=== PATIENT | female | born 1960 | race Caucasian/White ===

== ENCOUNTER 2020-12-22 14:40 | Emergency (ER) | payer BC ==
[~2020-12-22] VITALS: Ht 160 cm; Wt 54.3 kg
[~2020-12-22 14:40] MED LIST: CYCLOBENZAPRINE10 MG PO; NAPROSYN500 MG PO
--- NOTE | 2020-12-24 13:12 | EKG ---
[facility] [address] [place], [place] [address] Signed Normal sinus rhythm with sinus arrhythmia Possible Left atrial enlargement Cannot rule out Anterior infarct , age undetermined Abnormal ECG No previous ECGs available Confirmed by QUAN PRICE DO ([id number]) on 12/24/2020 1:12:20 PM Electronically Signed By: QUAN PRICE DO 12/24/20 1312 PATIENT NAME: ISAIAS SOTO Electrocardiogram DATE OF : 60 PHYSICIAN: QUAN PRICE DO REPORT #: [id number] REPORT IS CONFIDENTIAL AND NOT TO BE RELEASED WITHOUT AUTHORIZATION
== END 2020-12-22 19:04 | disposition home or self-care (01) ==
LOC: ED 14:40
DX: R55 Syncope and collapse (principal); F10.10 Alcohol abuse, uncomplicated; F17.200 Nicotine dependence, unspecified, uncomplicated; Z88.2 Allergy status to sulfonamides
CPT/HCPCS: 70450; 71045; 80053; 83735; 84484; 85025; 93005; 93010; 96374; 99285-25; J2060; J7030

== ENCOUNTER 2023-10-30 14:06 | Emergency (ER) | payer BC ==
[~2023-10-30] VITALS: Ht 160 cm; Wt 56.2 kg
[2023-10-30 15:53] LABS: BASOPHILS 0.3 % (0-2); EOSINOPHILS 0.9 % (0-6); HEMATOCRIT 40.7 % (35.0-50.0); HEMOGLOBIN 13.7 g/dL (12.0-18.0); MCHC 33.6 g/dl (30-36); MCV 98.2 fl (81-99); MONOCYTES 7.9 % (0-12); NEUTROPHILS 75.9 % (39-80); PLATELET COUNT 197 K/uL (140-440); RBC 4.15 M/ul (4.3-5.7); RDW 13.3 (10.5-15.0)
[2023-10-30 16:07] LABS: ALBUMIN/GLOBULIN RATIO 0.67 (1.1-2.4); ANION GAP 15.1 (7-21); BILIRUBIN, TOTAL 0.3 ng/dL (0.2-1.0); CALCIUM 9.6 mg/dL (8.5-10.1); CREATININE, SERUM 0.55 mg/dL (0.55-1.02); POTASSIUM 4.1 mmol/L (3.5-5.1); PROTEIN, TOTAL 7.5 g/dL (6.4-8.2)
[2023-10-30] MEDS ORDERED: CEFAZOLIN SODIUM 2 GM/20 ML SYR IV ONE (16:45)
[2023-10-30] MEDS ORDERED: diphenhydrAMINE HCL 25 MG CAP PO ONE (16:45)
[2023-10-30] MEDS ORDERED: CEPHALEXIN500 M1 PO (17:44)
[2023-10-30 17:54] VITALS: BP 133/76
== END 2023-10-30 17:55 | disposition home or self-care (01) ==
LOC: ED 14:06
PROVIDERS: Emergency Medicine
DX: L03.211 Cellulitis of face (principal); F17.200 Nicotine dependence, unspecified, uncomplicated; Z88.2 Allergy status to sulfonamides
CPT/HCPCS: 36415; 70487; 80053; 85025; 99283-25; J0690; Q9967